=== PATIENT | male | born 1985 | race Caucasian/White ===

== ENCOUNTER 2024-10-22 16:38 | Emergency (ER) | payer OTHER, SELFPAY ==
[2024-10-22 16:43] VITALS: BP 161/96; BMI 31.2
--- NOTE | 2024-10-22 16:53 | ED.GENMED ---
History of Present Illness
General
Chief Complaint: Flank Pain
Source: patient
Exam Limitations: none
Time Seen by Provider: 10/22/24 16:41
Nursing documentation reviewed up to this point in time: agreed with
History of Present Illness
History of Present Illness:
39-year-old male with no reported chronic medical issues presents to the emergency room for evaluation of left-sided flank/abdominal pain. Patient reports onset of symptoms earlier today and have been constant for the past few hours. Intensity has
been waxing and waning. He reports that sharp pain in the left flank radiates towards the left lower abdomen. No clear triggering factors noted. Denies any associated nausea or vomiting. Denies any dysuria, hematuria, change in frequency.
Denies any fevers or chills. He denies any trauma or injury. He denies similar symptoms in the past. Denies prior abdominal surgeries. He says he has had kidney stones in the past and scheduled an appointment with his urologist in 2 days after
onset of symptoms�scheduled for an appointment with Dr. Ledesma on 10/24/24. Could not manage pain until then.
Review of Systems
Review of Systems
All Other Systems: ROS reviewed and negative except as documented in HPI and ROS
Constitutional: Denies fever
Respiratory: Denies trouble breathing
Cardiac: Denies chest pain
ABD/GI: Reports abdominal pain; Denies nausea, vomiting or diarrhea
: Reports flank pain; Denies dysuria, frequency or bleeding
Musculoskeletal: Denies neck pain
Neurological: Denies dizzy or headache
Phy Exam
Physical Exam
Physical Exam:
General: Awake, alert, oriented x3; appears uncomfortable
Head: Normocephalic, atraumatic
Eyes: Conjunctiva normal, sclera anicteric
Throat: Airway intact, handling secretions
Neck: Trachea midline, supple without meningismus
Lungs: Clear to auscultation bilaterally, no wheezing, rales, rhonchi
Heart: Regular rate and rhythm, no murmurs, gallops, or rubs
Abd: Soft, non distended, nontender, no masses
Back: No CVA tenderness
Neuro: No gross deficits
Skin: no rash
Extremities: Warm and well-perfused
Scores
Heart Failure Risk
Heart Failure Risk Score: Not Applicable
Heart Score for Chest Pain Patients
STEMI patient?: Not applicable
Withdrawal Assessment of Alcohol
Withdrawal Assessment Completed?: Not applicable
Course
Orders/Labs/Results
Orders:
Orders
10/22/24 16:53
CT Abd/pel Without Iv Or Oral Urgent
Comment:
Reason For Exam: left flank pain
10/22/24 16:54
Complete Blood Count/With Diff Urgent
Comprehensive Metabolic Panel Urgent
Urinalysis Reflex To Culture Urgent
Date Specimen was Collected: 10/22/24
Time Specimen was Collected: 16:50
Urine Microscopic Reflex Cult Urgent
0.9% Sodium Chloride 1000 ml [Nss] 1,000 ml IV BOLUS
Ketorolac [Toradol] 15 mg IV NOW STA
10/22/24 19:12
HYDROmorphone [Dilaudid] 0.5 mg IV NOW STA
10/22/24 19:41
Tamsulosin [Flomax] 0.4 mg PO NOW STA
Abnormal Lab Results
10/22/24
16:54
MCH 32.6 H pg
(27.0-31.0)
Carbon Dioxide 20 L mmol/L
(22-30)
Glucose 129 H mg/dl
(70-99)
ALT 101 H U/L
(0-50)
Albumin 5.1 H g/dl
(3.5-5.0)
Ur Occult Blood Reflex 4+ A
(Negative)
Urine RBC 40-50 A /HPF
(0-2)
Urine Bacteria (Reflex) Few A
(Negative)
Urine Albumin (Reflex) 1+ A
(Neg - Trace)
10/22/24 16:54
10/22/24 16:54
Vital Signs
Initial and Last Documented VS:
Initial Vital Signs
Temp Pulse Resp BP Pulse Ox
36.9 C 74 20 161/96 96
10/22/24 16:43 10/22/24 16:43 10/22/24 16:43 10/22/24 16:43 10/22/24 16:43
Last Documented Vital Signs
Temp Pulse Resp BP Pulse Ox
36.9 C 74 20 164/102 97
10/22/24 16:43 10/22/24 16:43 10/22/24 16:43 10/22/24 17:00 10/22/24 17:45
MDM/Problems Addressed
Differential Diagnosis Includes:
Nephrolithiasis, diverticulitis, UTI, musculoskeletal back pain
MDM/Problems Addressed:
39-year-old male presents for evaluation of left flank/abdominal pain waxing and waning for the past few hours. Vitals and exam as above. Place an IV check labs including a CBC and a CMP, urinalysis. Will check CT of the abdomen pelvis. Provide
fluids, pain control. Monitor closely reassess after the above.
Labs reviewed: CBC unremarkable, CMP no clinically significant abnormalities. Urinalysis positive for blood but no signs of infection. Awaiting results of CT. Patient's pain returning on reassessment will repeat pain medication.
CT reviewed shows 6.5 mm stone left mid ureter. Patient is nontoxic with no signs of UTI or sepsis. His pain is well-controlled here. He has an appointment with urology in 2 days. Had a long discussion with the patient I explained that with
signs of stone likelihood of him passing this is slightly lower. Offered admission versus trial of passage until his appointment in 2 days. He feels comfortable with a trial of passage until he sees his urologist. Will return if he cannot manage
pain. All questions answered.
Acute Exacerbation and/or Progression of Chronic Illness:
Acutely hypertensive likely pain related�treat pain but hold emergent antihypertensives for now
Acute Exacerbation and/or Progression of Chronic Illness: HTN
*Radiology
Radiology exam reviewed: radiology read reviewed
*Pulse Oximetry
Patient hypoxic: no
*Critical Care Note
Total Time (30-74mins, 75-104mins- exclusive of procedures): Not Applicable
Data Reviewed
Source: patient
ED Attending Note
-
Portions of this chart may have been created with voice recognition software.� Occasional wrong word or��sound alike� substitutions may have occurred due to the inherent limitations of voice recognition software.
Discharge Plan
Departure
Patient Disposition: Home (Routine Discharge)
Date of Disposition: 10/22/24
Time of Disposition: 20:44
Patient with high blood pressure during this ER visit?: Yes
Discharge Problem:
Left nephrolithiasis
Instructions: Kidney Stones (DC)
Prescriptions:
New
tamsulosin [Flomax] 0.4 mg capsule
0.4 mg PO DAILY Qty: 14 0RF
Rx Instructions:
Take once daily until stone passes
oxycodone 5 mg tablet
5 mg PO Q6H PRN (Reason: Pain) Qty: 14 0RF
Referrals:
Andrew Sanchez MD [Family Provider] -
Gigi Ledesma MD [Non-Admitting Privileges] - Keep scheduled appt
Activity Restrictions/Additional Instructions:
Thank you for visiting the Emergency Department at [facility].
1. Please schedule a follow up appointment as directed. Call first thing tomorrow morning to make an appointment.
2. If indicated, please take your medications as instructed and indicated on discharge paperwork.
3. If any of your symptoms do not improve, or persist, or become more severe within 6-12 hours, please return to the emergency department for further care.
4. Please return to the emergency department if you develop a headache, neck pain/stiffness, fever greater than 100.4F, chest pain, shortness of breath, persistent nausea, vomiting, slurred speech, difficulty walking, numbness/tingling, weakness,
signs of infection or any other symptoms that are worrisome to you.
Please call [phone] if you have any questions.
Interventions
Interventions:
*Risk Screen - Suicide Last Done: 10/22/24 16:43
*General Assessment Last Done: 10/22/24 16:43
*Neglect/Abuse Screening Last Done: 10/22/24 16:43
*ED- Fall Risk Assessment Last Done: 10/22/24 16:43
*ED COVID-19 Vaccine History Last Done: 10/22/24 16:43
XA-Bmiprf-Eyihladqnc Assessment Last Done: 10/22/24 16:43
ED-Male Genitourinary Assessment Last Done: 10/22/24 16:43
Discharge Date and Time
Print Language: GAMBIAN
[2024-10-22] MEDS: TORADOL 15 MG IV (16:57)
[2024-10-22] MEDS: NSS 1000 IV (16:58)
[2024-10-22 17:00] VITALS: BP 164/102
[2024-10-22 17:01] LABS: % Basophils 0.5 % (0-2); % Eosinophils 0.5 % (0-6); % Immature Granulocytes 0.2 % (0-0.5); % Lymphocytes 23.9 % (20.5-51.1); % Monocytes 6.4 % (1.7-9.3); % Neutrophils 68.5 % (42.2-75.2); Absolute Basophils 0.1 10^3/uL (0-0.2); Absolute Eosinophils 0.1 10^3/uL (0-0.7); Absolute Lymphocytes 2.3 10^3/uL (1.2-3.4); Absolute Monocytes 0.6 10^3/uL (0.1-0.6); Absolute Neutrophils 6.5 10^3/uL (1.4-6.5); Hematocrit 45.5 % (39.0-52.0); Hemoglobin 16.7 g/dL (13.0-18.0); Mean Corp Hgb Conc. 36.7 g/dL (33.0-37.0); Mean Corpuscular Hgb 32.6 pg (27.0-31.0); Mean Corpuscular Volume 88.7 fL (80.0-94.0); Mean Platelet Volume 9.7 fL (7.4-10.4); Nucleated Red Blood Cells % 0 % (-); Platelet Count 232 10^3/uL (130-400); Red Blood Cell Count 5.13 10^6/uL (4.70-6.10); White Blood Cell Count 9.5 10^3/uL (4.8-10.8)
[2024-10-22 17:15] LABS: ALT (SGPT) 101 U/L (0-50); AST (SGOT) 43 U/L (17-59); Albumin 5.1 g/dl (3.5-5.0); Alkaline Phosphatase 101 U/L (38-126); Blood Urea Nitrogen 17 mg/dl (9-20); Calcium 9.8 mg/dl (8.4-10.2); Carbon Dioxide 20 mmol/L (22-30); Chloride 105 mmol/L (98-107); Estimated Creatinine Clearance > 125 ml/min; Glucose 129 mg/dl (70-99); Sodium 137 mmol/L (135-145); Total Bilirubin 1.1 mg/dl (0.2-1.3); Total Protein 7.9 g/dl (6.3-8.2); eGFR > 60.00
[2024-10-22 18:08] LABS: Urine Albumin 1+ (Neg - Trace); Urine Bilirubin Negative (Negative); Urine Character Clear (Clear); Urine Color Yellow; Urine Glucose Negative (Negative); Urine Ketone Negative (Negative); Urine Leukocyte Negative (Negative); Urine Nitrite Negative (Negative); Urine Occult Blood 4+ (Negative); Urine Specific Gravity 1.015 (<1.030); Urine Urobilinogen Negative (Neg - 1+)
[2024-10-22] MEDS: DILAUDID 0.5 MG IV (19:27)
[2024-10-22 19:52] LABS: Urine Bacteria Few (Negative); Urine Red Blood Cell 40-50 /HPF (0-2)
[2024-10-22] MEDS: FLOMAX 0.4 MG PO (20:09)
[2024-10-22 20:13] VITALS: BP 175/102
[2024-10-22 20:56] VITALS: BP 152/99
[2024-10-22 21:00] VITALS: BP 148/102
[2024-10-22] MEDS: ROXICODONE 5 MG PO (21:01)
== END 2024-10-22 21:29 | disposition home or self-care (01) ==
LOC: EMR 16:38
PROVIDERS: EMERGENCY PHYSICIAN Emergency Medicine; FAMILY PHYSICIAN Family Medicine
DX: N13.2 Hydronephrosis with renal and ureteral calculous obstruction (principal); Z87.442 Personal history of urinary calculi
CPT/HCPCS: 99284; 96374; 96375; 96361; 74176; 80053; 81003; 81015; 85025

== ENCOUNTER 2025-05-02 13:28 | Emergency (ER) | payer OTHER, SELFPAY ==
[2025-05-02 13:48] LABS: Hematocrit 47.1 % (39.0-52.0); Hemoglobin 16.3 g/dL (13.0-18.0); Mean Corp Hgb Conc. 34.6 g/dL (33.0-37.0); Mean Corpuscular Volume 93.6 fL (80.0-94.0); Nucleated Red Blood Cells % 0 % (-); Platelet Count 224 10^3/uL (130-400); Red Cell Dist. Width 12.4 % (11.5-14.5)
[2025-05-02 14:13] LABS: ALT (SGPT) 78 U/L (0-50); AST (SGOT) 33 U/L (17-59); Albumin 4.9 g/dl (3.5-5.0); Alkaline Phosphatase 86 U/L (38-126); Blood Urea Nitrogen 18 mg/dl (9-20); Calcium 9.6 mg/dl (8.4-10.2); Carbon Dioxide 23 mmol/L (22-30); Chloride 106 mmol/L (98-107); Glucose 138 mg/dl (70-99); Potassium 4.2 mmol/L (3.5-5.1); Sodium 137 mmol/L (135-145); Total Protein 8.1 g/dl (6.3-8.2); eGFR > 60.00
--- NOTE | 2025-05-02 16:19 | ED.GENMED ---
History of Present Illness
General
Chief Complaint: Flank Pain
Source: patient
Exam Limitations: none
Time Seen by Provider: 05/02/25 16:05
Nursing documentation reviewed up to this point in time: agreed with
History of Present Illness
History of Present Illness:
Patient to the emergency department with complaint of right flank pain. Pain started this morning. He has a prior history of kidney stones, last episode was approximately 4 months ago. He reports the pain is similar. Brought to the emergency
department via EMS. He was given pain medications and route to the emergency department and is currently pain-free. He denies any fever or chills. Reports nausea but no vomiting.
Past History
Past History
ED Past Medical History: Other (Kidney stones)
ED Past Surgical History: None
Review of Systems
Review of Systems
Allergies reviewed?: Yes
All Other Systems: ROS reviewed and negative except as documented in HPI and ROS
Constitutional: Reports no symptoms
EENT: Reports no symptoms
Respiratory: Reports no symptoms
Cardiac: Reports no symptoms
ABD/GI: Reports nausea
: Reports flank pain (Right flank pain)
Musculoskeletal: Reports no symptoms
Skin: Reports no symptoms
Neurological: Reports no symptoms
Psychiatric: Reports no symptoms
Phy Exam
General Physical Exam
General Presentation: mild distress
General age: appears stated age
General Skin: warm and dry
General Habitus: normal
General Mental: alert
Gastrointestinal Exam
Gastrointestinal Exam: non tender, soft, no organomegaly and non distended
Musculoskeletal Exam
Musculoskeletal Exam: full ROM
Skin Exam
Skin Exam: normal color, warm/dry and no rash
Psychiatric Exam
Psychiatric Exam: normal mood/affect
Course
Orders/Labs/Results
Orders:
Orders
05/02/25 13:40
Complete Blood Count/With Diff Urgent
Comprehensive Metabolic Panel Urgent
05/02/25 16:31
CT Abd/pel Without Iv Or Oral Urgent
Comment:
Reason For Exam: right flank pain
05/02/25 17:21
Urinalysis Reflex To Culture Urgent
Date Specimen was Collected: 05/02/25
Time Specimen was Collected: 13:33
Urine Microscopic Reflex Cult Urgent
Urine Culture Urgent
[place] Source: U
Specimen Description:
Date Specimen was Collected: 05/02/25
Time Specimen was Collected: 13:33
05/02/25 18:13
Tamsulosin [Flomax] 0.4 mg PO NOW STA
Abnormal Lab Results
05/02/25 05/02/25
13:40 17:21
MCH 32.4 H pg
(27.0-31.0)
Glucose 138 H mg/dl
(70-99)
ALT 78 H U/L
(0-50)
Ur Occult Blood Reflex 4+ A
(Negative)
Urine RBC >100 A /HPF
(0-2)
Urine Bacteria (Reflex) Many A
(Negative)
Urine Albumin (Reflex) 2+ A
(Neg - Trace)
05/02/25 13:40
05/02/25 13:40
Vital Signs
Initial and Last Documented VS:
Initial Vital Signs
Pulse Resp BP Pulse Ox
78 20 129/88 99
05/02/25 18:00 05/02/25 18:00 05/02/25 18:00 05/02/25 18:00
Last Documented Vital Signs
Pulse Resp BP Pulse Ox
78 20 129/88 99
05/02/25 18:00 05/02/25 18:00 05/02/25 18:00 05/02/25 18:00
*Radiology
Radiology exam reviewed: radiology read reviewed
*Pulse Oximetry
Patient hypoxic: no
*Critical Care Note
Total Time (30-74mins, 75-104mins- exclusive of procedures): Not Applicable
Update Note
Update Note:
Patient to the emergency department with complaint of right flank pain. His symptoms started this a.m. He has a known history of kidney stones and reports that the pain is similar to episodes in the past. CT reveals '5 mm mid right ureteral
calculus with associated mild right hydroureteronephrosis'. Labs reviewed BUN and creatinine normal, WBC normal, UA negative for UTI. Discussed findings with him using language line compensation associate. Will place on Flomax 0.4 mg daily, he will increase
his fluid intake, and he will follow-up with urology. He was given a strainer to strain his urine. Prescription for pain medication was transmitted to his pharmacy. He was given instructions on signs and symptoms to return to the emergency
department and he is agreeable to this plan.
ED Attending Note
-
Portions of this chart may have been created with voice recognition software.� Occasional wrong word or��sound alike� substitutions may have occurred due to the inherent limitations of voice recognition software.
Discharge Plan
Departure
Patient Disposition: Home (Routine Discharge)
Date of Disposition: 05/02/25
Time of Disposition: 18:13
Patient with high blood pressure during this ER visit?: No
Condition: Good
Covid-19: Not Applicable
Discharge Problem:
Kidney stone
Instructions: Kidney Stones (DC), How to Strain Your Urine, Narcotic Pain Medication
Prescriptions:
New
tamsulosin [Flomax] 0.4 mg capsule
0.4 mg PO DAILY Qty: 14 0RF
oxycodone 5 mg capsule
5 mg PO Q4H PRN (Reason: Pain) Qty: 12 0RF
No Action
tamsulosin [Flomax] 0.4 mg capsule
0.4 mg PO DAILY Qty: 14 0RF
Rx Instructions:
Take once daily until stone passes
oxycodone 5 mg tablet
5 mg PO Q6H PRN (Reason: Pain) Qty: 14 0RF
Referrals:
Andrew Sanchez MD [Family Provider, Family Practice]
Ron Herndon MD [Active, Urology] - Call in 1-3 days for appt
Interventions
Interventions:
*Risk Screen - Suicide Last Done: 05/02/25 13:29
*General Assessment Last Done: 05/02/25 13:29
*Neglect/Abuse Screening Last Done: 05/02/25 13:29
*ED- Fall Risk Assessment Last Done: 05/02/25 13:29
*ED COVID-19 Vaccine History Last Done: 05/02/25 13:29
*ED Influenza Vaccine History Last Done: 05/02/25 13:29
*Nursing Disposition Last Done: 05/02/25 18:46
JL-Xcnubi-Fpaxnpukxv Assessment Last Done: 05/02/25 17:30
ED-Male Genitourinary Assessment Last Done: 05/02/25 17:30
Discharge Date and Time
Discharge Date/Time: 05/02/25 18:46
Print Language: FIJIAN
[2025-05-02 17:27] LABS: Urine Character Slightly Cloudy (Clear)
[2025-05-02 17:58] LABS: Urine Red Blood Cell >100 /HPF (0-2); Urine Squamous Cell 0-2 /LPF (Few)
[2025-05-02 17:59] LABS: Urine White Cell 0-2 /HPF (0-5)
[2025-05-02 18:00] VITALS: BP 129/88
[2025-05-02] MEDS: FLOMAX 0.4 MG PO (18:20)
== END 2025-05-02 18:46 | disposition home or self-care (01) ==
LOC: EMR 13:28
PROVIDERS: Emergency Medicine; EMERGENCY PHYSICIAN Emergency Medicine; FAMILY PHYSICIAN Family Medicine
DX: N13.2 Hydronephrosis with renal and ureteral calculous obstruction (principal); Z87.442 Personal history of urinary calculi
CPT/HCPCS: 99284; 74176; 80053; 81003; 81015; 85025; 87086